=== PATIENT | male | born 1975 | race Caucasian/White ===

== ENCOUNTER 2018-10-31 13:46 | Observation (INO) | payer BC ==
[2018-10-31] MEDS ORDERED: ACETAMINOPHEN SUPPOSITORY 650 MG PR ONE (13:56)
[2018-10-31] MEDS ORDERED: PROMETHAZINE HCL INJ 12.5 MG in SODIUM CHLORIDE 0.9% 50ML 50 ML IVPB ONE (13:56)
[2018-10-31] MEDS ORDERED: fentaNYL CITRATE INJ 50 MCG/ML AMP IV ONE ×2 (13:56→18:12)
[2018-10-31] MEDS ORDERED: PROMETHAZINE HCL INJ 25 MG/ML VIAL ONE (14:01)
[2018-10-31] MEDS ORDERED: SODIUM CHLORIDE 0.9% 50ML 50 ML ONE (14:02)
--- NOTE | 2018-10-31 14:03 | ED.PDOC ---
History of Present Illness - General Chief Complaint: Abdominal Pain Stated Complaint: fever, nausea, RUQ pain Time Seen by Provider: 10/31/18 13:55 Information Source: patient Exam Limitations: no limitations - History of Present Illness Abdominal Pain Onset Location: RUQ Pain Radiation: back Quality: severe, other - COLICKY Timing/Duration: 1-3 hours Improving Factors: nothing Worsening Factors: eating - [employer] FO[employer]S Associated Symptoms: other - NAUSEA Review of Systems - Review of Systems Constitutional: States: chills. Denies: fever EENTM: States: no symptoms reported Respiratory: Denies: cough, short of breath Cardiology: Denies: chest pain, palpitations Gastrointestinal/Abdominal: States: abdominal pain, nausea. Denies: vomiting Genitourinary: States: no symptoms reported Musculoskeletal: States: no symptoms reported Skin: States: no symptoms reported Neurological: States: no symptoms reported Endocrine: States: no symptoms reported Hematologic/Lymphatic: States: no symptoms reported Past Medical History (General) - Patient Medical History Surgical History: other - Vaccination History Hx Influenza Vaccination: No Hx Pneumococcal Vaccination: No Immunizations Up to Date: No - Social History Hx Tobacco Use: Yes Hx Alcohol Use: Yes - [employer] daily Family Medical History - Family History Mother Family History: Unknown Physical Exam - Physical Exam General Appearance: Obese, Other - MOD DISTRESS DTP Eyes, Ears, Nose, Throat Exam: PERRL/EOMI, normal ENT inspection Neck: non-tender, supple, normal inspection Respiratory: lungs clear, normal breath sounds Cardiovascular/Chest: regular rate, rhythm, no murmur Gastrointestinal/Abdominal: other - HYPOACTIVE BS. MARKED RUQ TTP, NO GAURDING, NO REBOUND, + EAGLE'S Back Exam: normal inspection, no CVA tenderness Extremity: normal range of motion, non-tender Neurologic: alert, oriented x 3 Skin Exam: normal color, warm/dry Lymphatic: no adenopathy Progress - Progress Progress: 10/31/18 17:41 FLU POS, US NEG. WILL D/C HOME Departure - Departure Clinical Impression: Influenza A Time of Disposition: 17:43 Disposition: Discharge to Home or Self Care Condition: Good Departure Forms: ED Discharge - Pt. Copy, Patient Portal Self Enrollment Instructions: Flu Referrals: AGUSTIN REDMOND [Primary Care Provider] - 1-2 Weeks Prescriptions: Oseltamivir Capsule [Tamiflu] 75 mg PO BID 5 Days #10 capsule Home Medications: Ambulatory Orders Oseltamivir Capsule [Tamiflu] 75 mg PO BID 5 Days #10 capsule 10/31/18
[2018-10-31] MEDS ORDERED: PIPERACILLIN/TAZOBACTAM 3.375 GM in SODIUM CHLORIDE 0.9% 100ML 100 ML IVPB ONE (14:15)
--- NOTE | 2018-10-31 14:40 | RAD ---
EXAM DESCRIPTION: Chest,1 View CLINICAL HISTORY: 43 years Male, RUQ PAIN, FEVER COMPARISON: None. TECHNIQUE: AP portable chest. FINDINGS: Heart size is prominent with prominent central pulmonary vascularity. No consolidating infiltrate. No pulmonary mass or worrisome nodule. No pneumothorax or pleural effusion. Bones are unremarkable. IMPRESSION: No consolidating infiltrate. Electronically signed by: Jesse Zamarripa MD 10/31/2018 2:39 PM INFORMATION TECHNOLOGY ASSOCIATE
[2018-10-31] MEDS ORDERED: PIPERACILLIN/TAZOBACTAM 3.375 GM VIAL IVPB ONE (14:45)
[2018-10-31] MEDS ORDERED: SODIUM CHLORIDE 0.9% 100ML 100 ML IVPB ONE (14:46)
--- NOTE | 2018-10-31 17:00 | US ---
EXAM DESCRIPTION: Abdomen,Complete CLINICAL HISTORY: RUQ PAIN, EAGLE'S, R/O CHOLECYSTITIS COMPARISON: None Available. TECHNIQUE: Complete abdominal ultrasound FINDINGS: Visualized portions of the pancreas are unremarkable. No peripancreatic fluid. Bowel gas obscures some areas. Normal caliber of the aorta. Normal appearance of the inferior vena cava. Liver parenchyma is homogeneous in texture with normal echogenicity. No liver mass or intrahepatic bile duct dilatation. No liver surface irregularity. Normal appearance of hepatic veins and portal vein. Gallbladder appears normal with no intraluminal stones. No gallbladder wall thickening. Common bile duct is normal in caliber measuring 2.9 mm. The right kidney measures 10.6 cm in length. Normal renal cortical echogenicity. The renal cortical thickness appears normal. No right renal mass, shadowing stone or cyst. There is no hydronephrosis. Spleen is mildly enlarged measuring 13 cm in craniocaudal length. No focal splenic lesion. The left kidney measures 11.2 cm in length. Normal renal cortical echogenicity. The renal cortical thickness appears normal. No left renal mass, shadowing stone or cyst. There is no hydronephrosis. IMPRESSION: Mild splenomegaly. Otherwise unremarkable sonographic exam upper abdomen. Electronically signed by: Jesse Zamarripa MD 10/31/2018 4:59 PM ALL AROUND PATTERNMAKER
[2018-10-31] MEDS ORDERED: KETOROLAC TROMETHAMINE INJ 30 MG/ML VIAL IV ONE (17:44)
[2018-10-31] MEDS ORDERED: SODIUM CHLORIDE 0.9% 1000ML 1,000 ML IVS ONE (18:04)
[2018-10-31] MEDS ORDERED: IBUPROFEN 200 MG TAB PO ONE (18:04)
--- NOTE | 2018-10-31 19:01 | CT ---
EXAM DESCRIPTION: Abdomen/Pelvis w/Contrast CLINICAL HISTORY: 43 years Male ABDOMINAL PAIN, FEVER COMPARISON: None TECHNIQUE: Contiguous axial images were obtained through the abdomen and pelvis following the administration of intravenous contrast and/or oral contrast. Coronal and sagittal reconstructions are also obtained and reviewed. This exam was performed according to our departmental dose-optimization program, which includes automated exposure control, adjustment of the mA and/or kV according to patient size and/or use of iterative reconstruction technique. FINDINGS: LUNG BASES: HEART: Unremarkable. There is no cardiomegaly. LUNGS: There is minimal patchy alveolar opacification in the left lower lobe consistent with a small area of atelectasis and/or pneumonia. PLEURAL SPACES: There is no evidence of pleural fluid or pneumothorax . ABDOMEN: LIVER: Normal in size and configuration. There are no significant focal defects. There is no evidence of biliary ductal dilatation. GALLBLADDER AND BILE DUCTS: Unremarkable. There is no evidence of calculi or pericholecystic inflammatory changes. There is no biliary ductal dilatation. PANCREAS: Unremarkable. No ductal dilatation, inflammatory changes or mass. SPLEEN: The spleen is enlarged, measuring 13.5 cm longitudinally. ADRENALS: Unremarkable. No mass or calcification. KIDNEYS AND URETERS: There are no acute findings. There is no evidence of solid renal mass. There are no nonobstructive intrarenal calculi. There is no evidence of hydronephrosis. DISTAL ESOPHAGUS, STOMACH AND BOWEL: The distal esophagus is unremarkable. The stomach is unremarkable. Slightly distended loops of small bowel to 2.5 cm containing air-fluid levels are noted in the mid and lower abdomen one view contains hyperdense foci in the dependent aspect which could be portions of a partially digested radiopaque tablet or other radiopaque ingested material in the colon is unremarkable. The rectum is unremarkable. No evidence of intestinal obstruction. PELVIS: APPENDIX: Present and appears normal with no findings to suggest acute appendicitis. BLADDER: The urinary bladder appears thick walled up to 0.8 cm. No evidence of cystolithiasis or discrete bladder mass. REPRODUCTIVE: The prostate and seminal vesicles are unremarkable. ABDOMEN and PELVIS: INTRAPERITONEAL SPACE: Unremarkable. No free air or free fluid. No significant focal fluid collection. BONES AND JOINTS: There are no discernible acute fractures or areas of osseous destruction or blastic change. SOFT TISSUES: Unremarkable. VASCULATURE: Unremarkable. No abdominal aortic aneurysm. LYMPH NODES: Unremarkable. There is no evidence of mesenteric, retroperitoneal, pelvic or inguinal adenopathy. IMPRESSION: Minimal patchy atelectasis and/or pneumonia in the left lower lobe. Mild splenomegaly. Differential considerations include portal hypertension, infectious/inflammatory conditions, hematologic diseases such as anemias and extra medullary hematopoiesis, neoplasia, storage diseases and sequestration. Portal or splenic vein thrombosis also in the differential, although not present in this case. Suspect mild small bowel ileus. The appearance of the bladder wall thickening, defined as greater than 3 mm in a distended bladder and greater than 5 mm when nondistended, may be caused or exaggerated by incomplete distention. Other differential considerations for bladder wall thickening include neurogenic bladder, cystitis which can be infectious or secondary to extrinsic injury such as radiation or chemotherapy versus detrusor muscle hypertrophy as can occur with bladder outlet obstruction or autonomic dysfunction in the appropriate clinical setting. Recommend correlation with urinalysis. . There is no evidence of cystolithiasis or bladder mass. Remainder of findings as described above. Electronically signed by: Luisana Hopson MD 10/31/2018 7:00 PM LAWYER CRIMINAL
--- NOTE | 2018-10-31 21:44 | HP ---
SUPERVISING PHYSICIAN: Nnamdi Velásquez MD CHIEF COMPLAINT: Right upper quadrant abdominal pain. HISTORY OF PRESENT ILLNESS: This is a 43 year-old male patient who has had flu and cold-like symptoms for approximately 2 to 3 days. He felt like he had the flu but had not been tested for it and earlier today was driving from [place] to his home in [place] and he had severe right upper quadrant pain. He said it was so painful that he called his and said he had to go straight to the Emergency Room. In the Emergency Room, his vital signs were temperature of 103.3 with heart rate of 61, blood pressure 161/112. His respiratory rate was 20, his 02 saturation was 96%. WBCs in the Emergency Room were basically within normal limits. He did have a slight left shift but his differential is sodium of 133, chloride 97, other than that his BMP was basically unremarkable. His influenza swab was positive for flu A and he had blood cultures drawn. He was given some Titralac in the Emergency Room as well as some Zosyn. He was also given some fluids. An ultrasound of his abdomen was done and it showed mild splenomegaly, otherwise an unremarkable sonographic exam of the upper abdomen. He had an abdominal/pelvic CT that showed minimal patchy atelectasis and/or pneumonia in the left lower lobe with mild splenomegaly. Differential considerations include portal hypertension, infectious-like inflammatory condition, hematologic diseases such as anemia and extra medullary hematopoiesis, neoplasia, storage diseases and sequestration. Portal or splenic vein thrombosis also in the differential although they are not present in this case, suspect mild small bowel ileus. The appearance of the bladder wall thickening defined as greater than 3 mm in a distended bladder and greater than 5 mm when nondistended may be caused or exaggerated by incomplete distention. Other differentials considered for bladder wall thickening include neurogenic bladder, cystitis which can be infectious or secondary to extrinsic injury such as radiation or chemotherapy versus detrusor muscle hypertrophy as can occur with bladder outlet obstruction or autonomic dysfunction in the appropriate clinical setting. Recommend correlation with urinalysis There is no evidence of cystolithiasis or bladder mass. I was called for hospital admission. PAST MEDICAL HISTORY: Unremarkable. PAST SURGICAL HISTORY: Corneal transplant in 1999. CURRENT MEDICATIONS: No medications. ALLERGIES: No known drug allergies. SOCIAL HISTORY: He smokes 1 to 2 cigarettes a week. He drinks half a gallon of whiskey per week. He denies any illicit drugs. REVIEW OF SYSTEMS: Negative except as per history of present illness. PHYSICAL EXAMINATION: VITAL SIGNS: Temperature 100.1, pulse 97, blood pressure 103/81, respiratory rate 18, 02 saturation 96% on room air. GENERAL: This is a 43 year-old male patient who is lying in his hospital bed. He is in no acute distress. HEENT: Normocephalic and atraumatic. Pupils are equal and reactive. Oropharynx is clear. NECK: Supple without mass. CHEST: Essence clear to auscultation bilaterally. Chest has equal rise and fall with inspiration and expiration. CARDIOVASCULAR: Regular rate and rhythm. ABDOMEN: Soft, moderately tender in the right upper quadrant with some questionable rebound tenderness. There is no guarding. Bowel sounds are positive. SKIN: Warm and dry. EXTREMITIES: No cyanosis, clubbing, or edema. NEUROLOGIC: He is awake, alert, and oriented x3. Cranial nerves II through XII are grossly intact. ASSESSMENT: 1. Right upper quadrant abdominal pain with negative ultrasound and normal WBC with a slight left shift on differential. 2. Influenza A. 3. Mild hyponatremia and mild hypochloridemia. PLAN: We will place the patient in observation. I will give him fluids overnight. He received some Zosyn in the Emergency Room and at this point I do not see any reason to continue antibiotics. I will give him Tamiflu and recheck his labs in the morning as well as an abdominal x-ray. He will receive a PPI for ulcer prophylaxis and Lovenox for DVT prophylaxis. Giving him Zofran for nausea. We will continue to monitor him closely and follow as needed. Dr. Velásquez is the collaborating physician available for consultation. #[id number] [facility]
[2018-10-31 22:37] VITALS: O2SAT 95
[2018-10-31] MEDS ORDERED: SODIUM CHLORIDE 0.9% 1000ML 1,000 ML IVS PRN (22:58)
[2018-10-31] MEDS ORDERED: ONDANSETRON INJ 4 MG/2 ML VIAL IV PRN (22:58)
[2018-10-31] MEDS ORDERED: SODIUM CHLORIDE 0.9% (FLUSH) 10 ML SYG IV PRN (22:58)
[2018-10-31] MEDS ORDERED: IV SET AND CAP CHANGE INJ INJ SCH (23:00)
[2018-10-31] MEDS ORDERED: PANTOPRAZOLE SODIUM IV 40 MG VIAL IV SCH (23:30)
[2018-11-01] MEDS ORDERED: SODIUM CHLORIDE 0.9% 1000ML 1,000 ML ONE (00:14)
[2018-11-01] MEDS: OSELTAMIVIR 75 MG CAP PO SCH ×2 (00:22→08:53)
[2018-11-01] MEDS: KCL 20MEQ/D5NS 1,000 ML IVS PRN ×2 (00:55→08:51)
--- NOTE | 2018-11-01 07:48 | RAD ---
Procedure: XR ABDOMEN 2 VIEWS SUPINE ERECT Exam Date: 11/01/2018 Ordering Provider: Selin Turner NP Clinical Indication: abd pain Comparison: None Findings: Nonobstructive bowel gas pattern. There is no pneumoperitoneum. There are no suspicious calcifications. There is no acute osseous abnormality. Impression: 1. No acute findings. Electronically signed by: Yordy Castano MD 11/01/2018 7:46 AM DEFENCE INTELLIGENCE ANALYST
[2018-11-01] MEDS ORDERED: KCL 20MEQ/0.45% NS 0 ML IVS ONE (08:43)
[2018-11-01] MEDS ORDERED: KCL 20 MEQ/NS 1,000 ML IVS ONE (08:45)
[2018-11-01] MEDS ORDERED: SODIUM CHLORIDE 0.9% (FLUSH) 10 ML SYG IV SCH (09:00)
--- NOTE | 2018-11-01 12:01 | SSS ---
SUPERVISING PHYSICIAN: Nnamdi Velásquez MD DISCHARGE DIAGNOSIS: 1. Right upper quadrant abdominal pain with negative ultrasound and normal WBC with a slight left shift on differential. 2. Influenza A. 3. Mild hyponatremia and mild hypochloremia, improved. CHIEF COMPLAINT: Right upper quadrant abdominal pain. HISTORY OF PRESENT ILLNESS: This is a 43 year-old male patient who has had flu and cold-like symptoms for approximately 2 to 3 days. He felt like he had the flu but had not been tested for it and earlier today was driving from [place] to his home in [place] and he had severe right upper quadrant pain. He said it was so painful that he called his and said he had to go straight to the Emergency Room. In the Emergency Room, his vital signs were temperature of 103.3 with heart rate of 61, blood pressure 161/112. His respiratory rate was 20, his 02 saturation was 96%. WBCs in the Emergency Room were basically within normal limits. He did have a slight left shift but his differential is sodium of 133, chloride 97, other than that his BMP was basically unremarkable. His influenza swab was positive for flu A and he had blood cultures drawn. He was given some Titralac in the Emergency Room as well as some Zosyn. He was also given some fluids. An ultrasound of his abdomen was done and it showed mild splenomegaly, otherwise an unremarkable sonographic exam of the upper abdomen. He had an abdominal/pelvic CT that showed minimal patchy atelectasis and/or pneumonia in the left lower lobe with mild splenomegaly. Differential considerations include portal hypertension, infectious-like inflammatory condition, hematologic diseases such as anemia and extra medullary hematopoiesis, neoplasia, storage diseases and sequestration. Portal or splenic vein thrombosis also in the differential although they are not present in this case, suspect mild small bowel ileus. The appearance of the bladder wall thickening defined as greater than 3 mm in a distended bladder and greater than 5 mm when nondistended may be caused or exaggerated by incomplete distention. Other differentials considered for bladder wall thickening include neurogenic bladder, cystitis which can be infectious or secondary to extrinsic injury such as radiation or chemotherapy versus detrusor muscle hypertrophy as can occur with bladder outlet obstruction or autonomic dysfunction in the appropriate clinical setting. Recommend correlation with urinalysis There is no evidence of cystolithiasis or bladder mass. I was called for hospital admission. We will place the patient in observation. I will give him fluids overnight. He received some Zosyn in the Emergency Room and at this point I do not see any reason to continue antibiotics. I will give him Tamiflu and recheck his labs in the morning as well as an abdominal x-ray. He will receive a PPI for ulcer prophylaxis and Lovenox for DVT prophylaxis. Giving him Zofran for nausea. We will continue to monitor him closely and follow as needed. Dr. Velásquez is the collaborating physician available for consultation. PAST MEDICAL HISTORY: Unremarkable. PAST SURGICAL HISTORY: Corneal transplant in 1999. CURRENT MEDICATIONS: No medications. ALLERGIES: No known drug allergies. SOCIAL HISTORY: He smokes 1 to 2 cigarettes a week. He drinks half a gallon of whiskey per week. He denies any illicit drugs. REVIEW OF SYSTEMS: Negative except as per history of present illness. PHYSICAL EXAMINATION: VITAL SIGNS: Temperature 100.1, pulse 97, blood pressure 103/81, respiratory rate 18, 02 saturation 96% on room air. GENERAL: This is a 43 year-old male patient who is lying in his hospital bed. He is in no acute distress. HEENT: Normocephalic and atraumatic. Pupils are equal and reactive. Oropharynx is clear. NECK: Supple without mass. CHEST: Essence clear to auscultation bilaterally. Chest has equal rise and fall with inspiration and expiration. CARDIOVASCULAR: Regular rate and rhythm. ABDOMEN: Soft, moderately tender in the right upper quadrant with some questionable rebound tenderness. There is no guarding. Bowel sounds are positive. SKIN: Warm and dry. EXTREMITIES: No cyanosis, clubbing, or edema. NEUROLOGIC: He is awake, alert, and oriented x3. Cranial nerves II through XII are grossly intact. LABORATORY: Today's lab shows CMP basically unremarkable. CBC was within normal limits. Urinalysis was within normal limits except for trace lysed urine blood. Preliminary blood cultures negative. Abdominal x-ray this morning showed no acute findings. DISCHARGE PLAN: The patient will be discharged home in stable condition. He is to resume his previous diet and activity. He is to followup with Dr. Nabil Mcleod, his primary care physician, within one to two weeks. I have also ordered Tamiflu for 4 days and he is to complete that as ordered. He is to return to the hospital or followup with Dr. Mcleod for any problems or complications. It is also recommended he followup with a GI doctor as Dr. Mcleod recommends. DISCHARGE MEDICATIONS: 1. Tamiflu. #[id number] [facility]
[2018-11-01 14:06] VITALS: BP 125/60; TEMP 98.9
[2018-11-01] MEDS ORDERED: ENOXAPARIN SODIUM 40 MG/0.4 ML SYG SUBCU SCH (21:00)
[2018-11-02] MEDS ORDERED: PANTOPRAZOLE SODIUM IV 40 MG VIAL IV SCH (06:30)
== END 2018-11-01 12:20 | disposition home or self-care (01) ==
LOC: ER 13:46 → MS 21:42
PROVIDERS: ADMIT Nurse Practitioner Acute Care; ATTEND Nurse Practitioner Acute Care
DX: J10.1 Influenza due to other identified influenza virus with other respiratory manifestations (principal); R10.11 Right upper quadrant pain; E87.1 Hypo-osmolality and hyponatremia; E87.8 Other disorders of electrolyte and fluid balance, not elsewhere classified; R50.81 Fever presenting with conditions classified elsewhere; R16.1 Splenomegaly, not elsewhere classified; F17.210 Nicotine dependence, cigarettes, uncomplicated; Z94.7 Corneal transplant status
CPT/HCPCS: 96361 ×2; 96367; 96365; 96375 ×2; 96376; J3010 ×2; J1885; J2543; J2550; J7030 ×2; A4216; J3480; J7050; 80053 ×2; 36415; 82150; 81001; 85025 ×2; 87040 ×2; 83690; 83735; 74019; 71045; 74177; 76700; 94760 ×2; 99285; G0378; 87502